=== PATIENT | male | born 1960 | race Caucasian/White ===

== ENCOUNTER 2017-08-01 13:36 | Emergency (ER) | payer SELFPAY ==
[2017-08-01 13:40] VITALS: BMI 26.6
[2017-08-01 13:50] VITALS: RESP 18
--- NOTE | 2017-08-01 15:00 | C.PDOC ---
History Of Present Illness Patient is a 57 year old male with a history of IDDM, presents to the ED with complaints of taking his insulin medication improperly. Patient took 30 units of Humalog instead of 30 units of Levemir at 11:00am this morning. He realized shortly after that he made this mistake, started to feel hypoglycemic, weak and diaphoretic around 11:30, and ate several pieces of bread and other sugary foods. Patient states he came to the [facility] clinic downstairs and they sent him to the ED. The patient currently feels a little weak, but otherwise denies any complaints. Patient denies chest pain, abdominal pain, nausea, vomiting, diaphoresis, headaches, and shortness of breath. PMHx: IDDM SurgHx: denies FamHx: Father- HTN, "liver cancer" Allergies: NKDA Medications: Humalog 8 units before breakfast/dinner; 30 units Levemir in AM. SocHx: denies tobacco, alcohol, and drug use; retired. Time Seen by Provider: 08/01/17 14:09 Chief Complaint (Nursing): Medical Clearance History Per: Patient History/Exam Limitations: no limitations Onset/Duration Of Symptoms: Hrs Current Symptoms Are (Timing): Better Past Medical History Vital Signs: Last Vital Signs Temp 98 F 08/01/17 13:45 Pulse 83 08/01/17 13:45 Resp 18 08/01/17 13:45 BP 153/92 H 08/01/17 13:45 Pulse Ox 98 08/01/17 16:40 - Medical History PMH: Diabetes Family History: States: Unknown Family Hx - Social History Hx Alcohol Use: No Hx Substance Use: No - Immunization History Hx Tetanus Toxoid Vaccination: No Hx Influenza Vaccination: No Hx Pneumococcal Vaccination: No Review Of Systems Constitutional: Positive for: Sweats (resolved), Weakness. Negative for: Fever , Chills Eyes: Negative for: Vision Change Cardiovascular: Negative for: Chest Pain, Palpitations, Edema, Light Headedness Respiratory: Negative for: Cough, Shortness of Breath, SOB with Excertion Gastrointestinal: Negative for: Nausea, Vomiting, Abdominal Pain, Diarrhea, Constipation Genitourinary: Negative for: Dysuria Neurological: Negative for: Headache, Dizziness Physical Exam - Physical Exam Appears: No Acute Distress Skin: Normal Color, Warm, Dry, No Diaphoretic Head: Atraumatic, Normacephalic Eye(s): bilateral: Normal Inspection, PERRL, EOMI Oral Mucosa: Moist Cardiovascular: Rhythm Regular, No Edema, No Murmur Respiratory: Normal Breath Sounds, No Accessory Muscle Use, No Rales, No Rhonchi , No Stridor Gastrointestinal/Abdominal: Normal Exam, Bowel Sounds, Soft, No Tenderness Extremity: No Tenderness, No Pedal Edema, No Swelling Extremity: Bilateral: No Pedal Edema, Normal Color And Temperature Neurological/Psych: Oriented x3, Normal Speech ED Course And Treatment - Laboratory Results Result Diagrams: 08/01/17 15:44 08/01/17 15:44 O2 Sat by Pulse Oximetry: 98 Medical Decision Making Medical Decision Making: Ordered: - Labs: CBC, CMP - Contacted Poison Control - Will observe 6 hours or until patient is asymptomatic, Accucheck Q2hr. Serum glucose 234, otherwise CBC and CMP within normal limits. Accucheck Q2h- 250, 229, 280. Patient is asymptomatic, hungry, and ready to go home. Disposition Counseled Patient/Family Regarding: Studies Performed, Diagnosis, Need For Followup - Disposition Disposition: HOME/ ROUTINE Disposition Time: 18:46 Condition: STABLE Additional Instructions: Patient instructed to follow up with their PMD. If symptoms worsen or reoccur, patient should return to the ED. Instructions: Type 1 Diabetes, Blood Glucose Monitoring Forms: [employer] (Malay) - POA Present On Arrival: None - Clinical Impression Clinical Impression: Medical assessment, Diabetes mellitus, insulin-dependent (IDDM or type I)
[2017-08-01 15:47] LABS: BASO % 0.8 % (0.0-2.0); EOS % 0.7 % (0.0-4.0); HEMOGLOBIN 14.2 g/dL (12.0-18.0); LYMPH % 16.8 % (20.0-40.0); MEAN CELL VOLUME 92.8 fL (80.0-94.0); MEAN CORPUSCULAR HEMOGLOBIN 32.3 pg (27.0-31.0); MEAN CORPUSCULAR HGB CONC 34.8 g/dL (33.0-37.0); MEAN PLATELET VOLUME 7.5 fL (7.2-11.7); MONO # 0.3 K/uL (0.0-0.8); MONO % 4.6 % (0.0-10.0); NEUT # 4.6 K/uL (1.8-7.0); NEUT % 77.1 % (50.0-75.0); NRBC % 0.1 % (0.0-2.0); RBC 4.38 Mil/uL (4.40-5.90); RED CELL DISTRIBUTION WIDTH 12.8 % (11.5-14.5); WHITE BLOOD COUNT 5.9 K/uL (4.8-10.8)
[2017-08-01 16:19] LABS: ALB/GLOB RATIO 1.4 (1.0-2.1); ALBUMIN 3.9 g/dL (3.5-5.0); ALT/SGPT 33 U/L (21-72); AST/SGOT 34 U/L (17-59); BLOOD UREA NITROGEN 17 mg/dL (9-20); GFR AFRICAN-AMERICAN > 60; GFR NON-AFRICAN AMERICAN > 60
[2017-08-01 19:11] VITALS: BP 139/84; PULSE 79; TEMP 97.7; O2SAT 100
== END 2017-08-01 19:11 | disposition home or self-care (01) ==
LOC: C.ER 13:36
DX: Z00.00 Encounter for general adult medical examination without abnormal findings (principal); E10.9 Type 1 diabetes mellitus without complications; Z79.4 Long term (current) use of insulin